=== PATIENT | male | born 2000 | race Hispanic/Latino ===

== ENCOUNTER 2023-06-26 22:54 | Emergency (ER) | payer SELFPAY ==
[2023-06-26 22:59] VITALS: BP 170/90
[2023-06-27 00:31] VITALS: BP 131/81
--- NOTE | 2023-06-27 00:35 | ED.GENMED ---
History of Present Illness
<FARHANA Blum - Last Filed: 06/27/23 01:31>
General
Chief Complaint: Heart Rate Problem
Source: patient and per diem interpreter (icelandic )
Exam Limitations: none
Time Seen by Provider: 06/27/23 00:33
Nursing documentation reviewed up to this point in time: agreed with
Travel History
Have you had any contact with someone who has COVID-19?: No
Do you have any symptoms of coronavirus? Fever > 100 degrees, chills, cough, shortness of breath, sore throat, loss of taste or smell, muscle aches, or headache?: No
History of Present Illness
History of Present Illness:
23 y/o M presents to ED complaining of his 'heart beating really fast' x 1 week. Patient reports he feels as if his heart beats really fast then 'doesn't beat at all'. He also reports feeling nauseous and dizzy when he is standing or siting. He
reports movement/activity does not worsen his symptoms. He has not started any new workouts or joined any sports. He reports family stress but reports it is not a new new stressor. Patient reports drinking 1 redbull daily for the past year. He also
smokes 1-2 cigarettes daily. He denies cough, chest pain, nausea, vomiting, diarrhea, fever or chills. Denies leg pain. No personal or family history of cardiac problems. He reports this has never happened before.
If applicable-neuro sx onset
Onset of symptoms known: Yes
Date of onset of symptoms: 06/20/23
Review of Systems
<FARHANA Blum - Last Filed: 06/27/23 01:31>
Review of Systems
Allergies reviewed?: Yes
All Other Systems: ROS reviewed and negative except as documented in HPI and ROS
Constitutional: Reports no symptoms
EENT: Reports no symptoms
Respiratory: Reports no symptoms
Cardiac: Reports palpitations
ABD/GI: Reports nausea
: Reports no symptoms
Musculoskeletal: Reports no symptoms
Skin: Reports no symptoms
Neurological: Reports dizzy
Endocrine: Reports no symptoms
Hematologic/Lymphatic: Reports no symptoms
Psychiatric: Reports no symptoms
Phy Exam
<Kate SuttonFARHANA - Last Filed: 06/27/23 01:31>
General Physical Exam
General Presentation: well appearing and no apparent distress
General age: appears stated age
General Skin: warm and dry
General Habitus: normal
General Mental: alert
General Hydration: appears well hydrated
Eye Exam
Eye Exam: PERRL, EOMI and conjunctiva normal
Cardiovascular Exam
Cardiovascular Exam: regular rate/rhythm, no edema, no gallop, no murmur and normal peripheral pulses
Pulmonary Exam
Pulmonary Exam: lungs clear, no respiratory distress, no rales, no crackles and no rhonchi
Gastrointestinal Exam
Gastrointestinal Exam: non tender, soft and non distended
Neurological Exam
Neurological Exam: alert and oriented x3
Skin Exam
Skin Exam: normal color and warm/dry
Psychiatric Exam
Psychiatric Exam: normal mood/affect
Scores
<Karenhortensia SuttonFARHANA garg - Last Filed: 06/27/23 01:31>
PE Wells Score
Symptoms of DVT: No
No alternative diagnosis better explains the illness: No
Tachycardia with pulse > 100: No
Immobilization (>=3 days) or surgery within previous 4 weeks: No
Prior history of DVT or pulmonary embolism: No
Presence of hemoptysis: No
Presence of malignancy: No
Pulmonary Embolism Risk Score: 0
Probability of PE: Pt is low risk
PERC Rule Criteria
Age <50 years: Yes
HR <100 bpm: Yes
Room air oxygen sat >94%: Yes
History of DVT or PE: No
Recent trauma or surgery: No
Hemoptysis: No
Exogenous estrogen: No
Clinical signs suggestive of DVT: No
: No
Considered low risk for PE: Yes
PERC Score: 0
PE can be excluded by PERC: Yes
<William Richardson DO - Last Filed: 06/27/23 02:44>
PE Wells Score
Pulmonary Embolism Risk Score: 0
Probability of PE: Pt is low risk
PERC Rule Criteria
PERC Score: 0
PE can be excluded by PERC: Yes
Course
<FARHANA Blum - Last Filed: 06/27/23 01:31>
Orders/Labs/Results
Orders:
Orders
06/26/23 23:03
Electrocardiogram (*1) Urgent
Reason for Study: Tachycardia
EKG- Treatment ONCE
06/27/23 01:14
Complete Blood Count/With Diff Urgent
Comprehensive Metabolic Panel Urgent
PTT Urgent
Prothrombin Time Urgent
TSH Urgent
Troponin I Urgent
06/27/23 01:30
CXR2 [CR Chest - 2 Views ] Urgent
Comment:
Reason For Exam: decreased breath sounds
Abnormal Lab Results
06/27/23
01:14
MCH 31.2 H pg
(27.0-31.0)
MCHC 37.3 H g/dL
(33.0-37.0)
Lymphocytes % 20.2 L %
(20.5-51.1)
Glucose 121 H mg/dl
(70-99)
ALT 78 H U/L
(0-50)
06/27/23 01:14
06/27/23 01:14
Vital Signs
Initial and Last Documented VS:
Initial Vital Signs
Temp Pulse Resp BP Pulse Ox
97.6 F 80 18 170/90 100
06/26/23 22:59 06/26/23 22:59 06/26/23 22:59 06/26/23 22:59 06/26/23 22:59
Last Documented Vital Signs
Temp Pulse Resp BP Pulse Ox
97.6 F 80 18 170/90 100
06/26/23 22:59 06/26/23 22:59 06/26/23 22:59 06/26/23 22:59 06/27/23 00:17
<William Richardson, DO - Last Filed: 06/27/23 02:44>
Orders/Labs/Results
Orders:
Orders
06/26/23 23:03
Electrocardiogram (*1) Urgent
Reason for Study: Tachycardia
EKG- Treatment ONCE
06/27/23 01:14
Complete Blood Count/With Diff Urgent
Comprehensive Metabolic Panel Urgent
PTT Urgent
Prothrombin Time Urgent
TSH Urgent
Troponin I Urgent
06/27/23 01:30
CXR2 [CR Chest - 2 Views ] Urgent
Comment:
Reason For Exam: decreased breath sounds
Abnormal Lab Results
06/27/23
01:14
MCH 31.2 H pg
(27.0-31.0)
MCHC 37.3 H g/dL
(33.0-37.0)
Lymphocytes % 20.2 L %
(20.5-51.1)
Glucose 121 H mg/dl
(70-99)
ALT 78 H U/L
(0-50)
06/27/23 01:14
06/27/23 01:14
Vital Signs
Initial and Last Documented VS:
Initial Vital Signs
Temp Pulse Resp BP Pulse Ox
97.6 F 80 18 170/90 100
06/26/23 22:59 06/26/23 22:59 06/26/23 22:59 06/26/23 22:59 06/26/23 22:59
Last Documented Vital Signs
Temp Pulse Resp BP Pulse Ox
97.6 F 80 18 170/90 100
06/26/23 22:59 06/26/23 22:59 06/26/23 22:59 06/26/23 22:59 06/27/23 00:17
<FARHANA Blum - Last Filed: 06/27/23 01:31>
MDM/Problems Addressed
Differential Diagnosis Includes:
Anxiety
Caffeine induced palpitations
PE (less likely)
OK
PNA
MDM/Problems Addressed:
23 y/o M presents to ED complaining of 'fast heart beat' and dizziness. Patient does drink Redbull daily and smokes 1-2 cigarettes a day. Patient symptoms most likely secondary to caffeine intake. Given patient is healthy young male, OK and PE are
less likely. PNA considered given decreased breath sounds. CXR ordered to r/o.
<FARHANA Blum - Last Filed: 06/27/23 01:31>
*Critical Care Note
Total Time (30-74mins, 75-104mins- exclusive of procedures): Not Applicable
ED Attending Note
<FARHANA Blum - Last Filed: 06/27/23 01:31>
-
Portions of this chart may have been created with voice recognition software.� Occasional wrong word or��sound alike� substitutions may have occurred due to the inherent limitations of voice recognition software.
<William Richardson DO - Last Filed: 06/27/23 02:44>
ED Attending Note
Patient seen and examined by attending physician: Yes
I performed the substantive portion of visit, reviewed & personally made and approve the management plan that is documented in note by myself or RORO.: Yes
ED Attending Note:
23-year-old male presents with palpitations for the last week. He states that he does feel dizziness when standing. He has been consuming large amounts of caffeine during this timeframe.
Discharge Plan
Departure
Patient Disposition: Home (Routine Discharge)
Date of Disposition: 06/27/23
Time of Disposition: 02:43
Patient with high blood pressure during this ER visit?: Yes
Condition: Good
Discharge Problem:
Palpitations
Instructions: Palpitations (DC), BLOOD PRESSURE
Referrals:
[facility] [Outside]
[facility] [Outside]
NONE,* [Family Provider] -
Interventions
Interventions:
*Risk Screen - Suicide Last Done: 06/26/23 22:59
*General Assessment Last Done: 06/27/23 00:17
*Neglect/Abuse Screening Last Done: 06/26/23 22:59
ED- Fall Risk Assessment Last Done: 06/27/23 00:17
*ED COVID-19 Vaccine History Last Done: 06/27/23 00:17
ED- Cardiac Assessment Last Done: 06/27/23 00:17
ED- Pulmonary Assessment Last Done: 06/27/23 00:17
Discharge Date and Time
Print Language: FRISIAN
[2023-06-27 01:00] VITALS: BP 137/88
[2023-06-27 01:29] LABS: % Basophils 0.3 % (0-2); % Eosinophils 0.8 % (0-6); % Immature Granulocytes 0.1 % (0-0.5); % Lymphocytes 20.2 % (20.5-51.1); % Monocytes 5.1 % (1.7-9.3); % Neutrophils 73.5 % (42.2-75.2); Absolute Eosinophils 0.1 10^3/uL (0-0.7); Absolute Lymphocytes 1.6 10^3/uL (1.2-3.4); Absolute Monocytes 0.4 10^3/uL (0.1-0.6); Absolute Neutrophils 5.7 10^3/uL (1.4-6.5); Hematocrit 42.6 % (39.0-52.0); Hemoglobin 15.9 g/dL (13.0-18.0); Mean Corp Hgb Conc. 37.3 g/dL (33.0-37.0); Mean Corpuscular Hgb 31.2 pg (27.0-31.0); Mean Corpuscular Volume 83.7 fL (80.0-94.0); Mean Platelet Volume 9.2 fL (7.4-10.4); Nucleated Red Blood Cells % 0 % (-); Platelet Count 298 10^3/uL (130-400); Red Blood Cell Count 5.09 10^6/uL (4.70-6.10); Red Cell Dist. Width 11.9 % (11.5-14.5); White Blood Cell Count 7.8 10^3/uL (4.8-10.8)
[2023-06-27 01:41] LABS: APTT 30.4 Sec (23.4-35.0)
[2023-06-27 01:45] LABS: ALT (SGPT) 78 U/L (0-50); AST (SGOT) 45 U/L (17-59); Albumin 4.9 g/dl (3.5-5.0); Alkaline Phosphatase 117 U/L (38-126); Blood Urea Nitrogen 19 mg/dl (9-20); Calcium 10.2 mg/dl (8.4-10.2); Carbon Dioxide 28 mmol/L (22-30); Chloride 102 mmol/L (98-107); Glucose 121 mg/dl (70-99); Sodium 140 mmol/L (135-145); Total Bilirubin 0.5 mg/dl (0.2-1.3); Total Protein 7.7 g/dl (6.3-8.2); eGFR > 60.00
[2023-06-27 01:53] LABS: Troponin I < 0.012 ng/ml
[2023-06-27 02:00] VITALS: BP 117/72
[2023-06-27 02:15] LABS: TSH 1.27 uIU/ml (0.47-4.68)
[2023-06-27 02:34] VITALS: BP 120/83
== END 2023-06-27 03:00 | disposition home or self-care (01) ==
LOC: EMR 22:54
PROVIDERS: EMERGENCY PHYSICIAN Student in an Organized Health Care Education/Training Program
DX: R00.2 Palpitations (principal); F17.210 Nicotine dependence, cigarettes, uncomplicated; R03.0 Elevated blood-pressure reading, without diagnosis of hypertension
CPT/HCPCS: 99285; 71046; 80053; 84443; 84484; 85025; 85610; 85730; 93005